=== PATIENT | male | born 1990 | race African-American/Black ===

== ENCOUNTER 2018-06-10 18:47 | Emergency (ER) | payer SELFPAY ==
[~2018-06-10] VITALS: Ht 182.9 cm; Wt 88.5 kg
[2018-06-10 19:00] VITALS: BP_SYST 137
[2018-06-10] MEDS ORDERED: IBUPROFEN 600 MG TABLET PO ONE (19:45)
[2018-06-10 20:03] VITALS: BP_SYST 137
== END 2018-06-10 20:03 | disposition home or self-care (01) ==
LOC: SED 18:47
DX: J01.90 Acute sinusitis, unspecified (principal); K21.9 Gastro-esophageal reflux disease without esophagitis; R03.0 Elevated blood-pressure reading, without diagnosis of hypertension
CPT/HCPCS: 99283